=== PATIENT | male | born 1965 | race Caucasian/White ===

== ENCOUNTER 2020-11-28 10:22 | Emergency (ER) | payer OTHER, SELFPAY ==
--- NOTE | ~2020-11-28 | XR_ITS ---
EXAMINATION: XR chest 1V portable DATE: 11/28/2020 11:49 INDICATION: Shortness of breath and fever. TECHNIQUE: A single frontal view of the chest was obtained. COMPARISON: CT abdomen and pelvis 10/17/2011 FINDINGS: There are airspace opacities in the mid and lower lung zones with a peripheral predominance . No pleural effusion or pneumothorax. The heart size is normal. IMPRESSION: 1. Airspace opacities in the mid and lower lung zones, consistent with pneumonia. Reviewed, dictated and finalized at location B. WORKER IMPRESSION: 1. Airspace opacities in the mid and lower lung zones, consistent with pneumoni a.
--- NOTE | 2020-11-28 10:26 | ECG_ITS ---
Measurements Intervals [place] Rate: 71 P: 34 AL: 126 QRS: 55 QRSD: 93 T: 42 QT: 372 QTc: 406 Interpretive Statements SINUS RHYTHM NORMAL ECG Electronically Signed On 11-28-2020 10:40:14 SHOCK ABSORBER INSTALLER by Zac Lynne D.O.
[2020-11-28 10:28] VITALS: BP 123/100; PULSE 73; RESP 14; TEMP 36.3; O2SAT 99
[2020-11-28 10:56] LABS: Basophils Percent Auto 0.2 % (0.2-1.2); Eosinophils Percent Auto 0.3 % (0-4.4); Hematocrit 41.1 % (42.0-52.0); Hemoglobin 13.5 g/dL (14.0-18.0); Immature Granulocyte Absolute 0.02 K/mm3 (0.00-0.031); Immature Granulocyte Percent A 0.3 % (0-0.5); Lymphocytes Absolute Auto 0.94 K/mm3 (0.9-3.2); Lymphocytes Percent Auto 16.4 % (18.3-44.2); Mean Corpuscular HGB Conc 32.8 g/dl (32-36); Mean Corpuscular Hemoglobin 28.2 pg (26-34); Mean Corpuscular Volume 85.8 fl (80-100); Mean Platelet Volume 9.9 fl (7.4-10.4); Monocytes Absolute Auto 0.4 K/mm3 (0.1-0.6); Monocytes Percent Auto 7.1 % (2.6-8.5); Neutrophils Absolute Auto 4.3 K/mm3 (1.3-6.7); Neutrophils Percent Auto 75.7 % (45.5-73.1); Platelet Count Result 204 k/mm3 (150-375); Red Blood Count 4.79 M/mm3 (4.6-6.20); Red Cell Distribution Width 12.8 % (11.5-14.5); White Blood Count 5.7 K/mm3 (4.5-10.0)
[2020-11-28 11:03] LABS: Prothrombin Time 13.5 Seconds (11.1-14.7)
[2020-11-28 11:04] LABS: Partial Thromboplastin Time 36.1 SECONDS (22.3-36.8)
[2020-11-28 11:05] LABS: Anion Gap 9 mmol/L (8-16); Blood Urea Nitrogen 13 mg/dL (9-20); Calcium 9.1 mg/dL (8.4-10.2); Carbon Dioxide 27 mmol/L (22-30); Chloride 102 mmol/L (98-107); Estimated CRCL calculation 76 ml/min; Estimated Glomerular Filt Rate > 60; Glucose 125 mg/dL (75-110); Potassium 3.9 mmol/L (3.4-5.0); Sodium 138 mmol/L (137-145)
[2020-11-28 11:07] LABS: Alanine Aminotransferase 48 U/L (4-50); Albumin Level 4.1 g/dL (3.5-5.1); Alkaline Phosphatase 82 U/L (38-126); Aspartate Amino Transferase 43 U/L (17-59); Bilirubin,Total 0.8 mg/dL (0.2-1.3); Lipase 35 U/L (23-300)
[2020-11-28 11:19] LABS: Troponin I < 0.012 ng/mL (0.000-0.034)
[2020-11-28 11:25] LABS: CRP 20.4 mg/dL (<1.0)
[2020-11-28] MEDS: SODIUM CHLORIDE 0.9% IV 1,000 ML 999 ML IV CONT (11:34)
[2020-11-28 11:53] LABS: Lactic Acid Reflex 0.8 mmol/L (0.7-2.1)
--- NOTE | 2020-11-28 12:34 | ED.GENADULT ---
HPI - General Adult General Chief complaint: Shortness of Breath/Dyspnea Stated complaint: COVID +, SOB, FEVER Time Seen by Provider: 11/28/20 10:27 Source: patient Mode of arrival: ambulatory Limitations: no limitations History of Present Illness HPI narrative: Patient is a 55-year-old male who presents with shortness of breath fatigue fevers headache and body aches since the 4 when he developed his Covid symptoms patient tested positive and has been at home taking Tylenol and ibuprofen only patient denies any lung disease heart disease. Patient on arrival notes this morning felt short of breath and fatigue but is feeling much better at this time upon arrival to emergency department. Patient denies vomiting or diarrhea and on arrival appears in no distress Related Data Allergies Allergy/AdvReac Type Severity Reaction Status Date / Time codeine Allergy Unknown Unknown Verified 11/28/20 10:36 [email or web address] Allergy Verified 10/17/11 12:41 Review of Systems Review of Systems: All systems reviewed & are unremarkable except as noted in HPI and below PMFSH Past Medical History Medical History (Updated 11/28/20 @ 12:44 by Cole [place] PA-C) Hypertension Social History Social History (Updated 11/28/20 @ 12:36 by Cole [place] PA-C) Smoking status: Former smoker Exam Narrative: Exam Narrative: GENERAL: Well-appearing, well-nourished, and in no acute distress. HEAD: Normocephalic, atraumatic. EYES: PERRLA and EOMI. ENT: Nares clear, no rhinorrhea or epistaxis. Mucous membranes moist. CHEST: Clear to auscultation. No respiratory distress. No wheezes rales or rhonchi HEART: Regular rate and rhythm. No murmur heard. EXTREMITIES: Normal range of motion. No edema. SKIN: Warm, dry, no rash. NEURO: No focal deficits. Alert and oriented x3. Cranial nerves II through XII grossly intact PSYCH: Normal mood and affect. Course Course Emergency Course: Patient presented to emergency department with symptoms related to COVID-19 no hypoxemia normal vital signs no high risk changes in the blood work or imaging at this time no distress felt appropriate for outpatient reevaluation. Patient provided with reasons to return will be treated symptomatically. Patient advised to purchase a home oximeter to follow his oxygenation Vital Signs Vital signs: Vital Signs Temperature 97.3 F L 11/28/20 10:28 Pulse Rate 73 11/28/20 10:28 Respiratory Rate 14 11/28/20 10:28 Blood Pressure 123/100 H 11/28/20 10:28 Pulse Oximetry 99 11/28/20 10:28 Temperature 97.3 F L 11/28/20 10:28 Pulse Rate 73 11/28/20 10:28 Respiratory Rate 14 11/28/20 10:28 Blood Pressure 123/100 H 11/28/20 10:28 Pulse Oximetry 99 11/28/20 10:28 Medical Decision Making MDM Narrative Medical decision making narrative: Patient with Covid symptoms felt appropriate for outpatient reevaluation will be discharged with medications to treat his symptoms given reasons to return felt appropriate for outpatient reevaluation. Vital Signs Vital Signs: Vital Signs Temperature 97.3 F L 11/28/20 10:28 Pulse Rate 73 11/28/20 10:28 Respiratory Rate 14 11/28/20 10:28 Blood Pressure 123/100 H 11/28/20 10:28 Pulse Oximetry 99 11/28/20 10:28 Temperature 97.3 F L 11/28/20 10:28 Pulse Rate 73 11/28/20 10:28 Respiratory Rate 14 11/28/20 10:28 Blood Pressure 123/100 H 11/28/20 10:28 Pulse Oximetry 99 11/28/20 10:28 Lab Data Result diagrams: 11/28/20 10:43 11/28/20 10:43 Labs: Lab Results 11/28/20 11/28/20 11/28/20 Range/Units 10:43 10:43 10:43 WBC 5.7 (4.5-10.0) K/mm3 RBC 4.79 (4.6-6.20) M/mm3 Hgb 13.5 L (14.0-18.0) g/dL Hct 41.1 L (42.0-52.0) % MCV 85.8 (80-100) fl MCH 28.2 (26-34) pg MCHC 32.8 (32-36) g/dl RDW 12.8 (11.5-14.5) % Plt Count 204 (150-375) k/mm3 MPV 9.9 (7.4-10.4) fl Immature Gran % (Auto) 0.3 (0-0.5) % Mer[place]
[2020-11-28] MEDS: DEXAMETHASONE SOD PHOS INJ 4 MG/ML VIAL 6 MG IV PUSH (12:46)
[2020-11-28 12:49] VITALS: BP 137/91; PULSE 61; RESP 18; TEMP 36.9; O2SAT 100
== END 2020-11-28 13:00 | disposition home or self-care (01) ==
PROVIDERS: Emergency Medicine Emergency Medical Services; Emergency Provider Emergency Medicine; PCP Internal Medicine Gastroenterology
DX: U07.1 COVID-19 (principal); J12.82 Pneumonia due to coronavirus disease 2019; I10 Essential (primary) hypertension; Z87.891 Personal history of nicotine dependence
CPT/HCPCS: 36415; 71045; 80048; 80076; 83605; 83690; 84484; 85025; 85610; 85730; 86140; 87040; 93005; 96361; 96374; 99284; J1100; J7030

== ENCOUNTER 2025-04-17 10:43 | Emergency (ER) | payer OTHER, SELFPAY ==
--- NOTE | ~2025-04-17 | CT_ITS ---
EXAMINATION: CT abdomen pelvis w con DATE: 04/17/2025 11:36 INDICATION: Lower abdominal pain with bleeding TECHNIQUE: Computed tomography (CT) of the abdomen and pelvis was performed with 100 mL Omnipaque-350 intravenous contrast. Automated exposure control and iterative reconstruction technique were employe d. The dose-length product was 716.29 mGy-cm. COMPARISON: None FINDINGS: Lung bases are clear. Heart size normal. No pericardial or pleural effusion. Liver, gallbladder, sple en, pancreas, bilateral adrenal glands and kidneys are normal. Bowels including the appendix are norm al. Small fat-containing umbilical hernia. Bladder is normal. Small left and moderate-sized right fat -containing bilateral inguinal hernias. No free intraperitoneal gas or fluid. No pathologically enlar ged abdominal or pelvic lymphadenopathy. Severe disc height loss with degenerative endplate changes a t L4-L5. Otherwise mild scattered degenerative skeletal changes in the spine and pelvis. IMPRESSION: 1. No acute intra-abdominal/pelvic process. Reviewed, dictated and finalized at location A.
--- OUTSIDE RECORDS SUMMARY | 2025-04-17 10:45 | XMS_ITS | Continuity of Care Document ---
Author Organization [facility] Address [address] [place] [address] [address] [facility] [address] [place] [address] Phone Care Team Providers Care Manufacturing Area Manager Name Role Phone Miguelangel Eugene Unavailable Unavailable Procedures Procedure Date Eye Exam, New Patient Advance Directives Directive Yes / No Effective Date File Name No Information Encounters Encounter Description Practice Location Reason(s) For Visit Diagnoses Date Provider Providers Copied on Encounter [facility], [address] [place] [address] [address], [place], [place], [id number], [place] tel:[phone] SEC [facility] No Information [address] [facility] [address], [place], [address], [place]. tel:[phone] Family History Family Member Type Diagnosis Age At Onset No Information Payers Payer name Insurance type Covered green party ID Authoriza tipeter(s) [facility] CI [id number] Social History Type Description Quantity Date Captured [...]
--- OUTSIDE RECORDS SUMMARY | 2025-04-17 10:45 | XMS_ITS | CONTINUITY OF CARE DOCUMENT ---
Author Name tomas marin Address Unknown Organization [facility] Address [address] [place] [address] [address] [place] [address] Phone [phone] Care Team Providers Care Plate Roller Name Role Phone tomas marin Unavailable Unavailable
[2025-04-17 10:48] VITALS: BP 138/70; PULSE 67; RESP 18; TEMP 36.6; O2SAT 100
[2025-04-17 11:05] LABS: Basophils Percent Auto 0.6 % (0.2-1.2); Eosinophils Absolute Auto 0.1 K/mm3 (0-0.3); Eosinophils Percent Auto 1.3 % (0-4.4); Hematocrit 47.2 % (42.0-52.0); Hemoglobin 15.5 g/dL (14.0-18.0); Immature Granulocyte Absolute 0.01 K/mm3 (0.00-0.031); Immature Granulocyte Percent A 0.1 % (0-0.5); Lymphocytes Absolute Auto 1.15 K/mm3 (0.9-3.2); Lymphocytes Percent Auto 16.2 % (18.3-44.2); Mean Corpuscular HGB Conc 32.8 g/dl (32-36); Mean Corpuscular Hemoglobin 28.8 pg (26-34); Mean Corpuscular Volume 87.6 fl (80-100); Mean Platelet Volume 11.3 fl (7.4-10.4); Monocytes Absolute Auto 0.5 K/mm3 (0.1-0.6); Monocytes Percent Auto 7.1 % (2.6-8.5); Neutrophils Absolute Auto 5.3 K/mm3 (1.3-6.7); Neutrophils Percent Auto 74.7 % (45.5-73.1); Platelet Count Result 179 k/mm3 (150-375); Red Blood Count 5.39 M/mm3 (4.6-6.20); Red Cell Distribution Width 13.2 % (11.5-14.5); White Blood Count 7.1 K/mm3 (4.5-10.0)
--- OUTSIDE RECORDS SUMMARY | 2025-04-17 11:05 | XMS_ITS | Continuity of Care Document ---
Author Organization [facility] Address [address] [place] [address] [address] [facility] [address] [place] [address] Phone Care Team Providers Care Therapeutic Sales Specialist Name Role Phone Miguelangel Eugene Unavailable Unavailable Procedures Procedure Date Eye Exam, New Patient Advance Directives Directive Yes / No Effective Date File Name No Information Encounters Encounter Description Practice Location Reason(s) For Visit Diagnoses Date Provider Providers Copied on Encounter [facility], [address] [place] [address] [address], [place], [place], [id number], [place] tel:[phone] [facility] No Information [address] [facility] [address], [place], [address], [place]. tel:[phone] Family History Family Member Type Diagnosis Age At Onset No Information Payers Payer name Insurance type Covered republican ID Authoriza tipeter(s) [facility] CI [id number] Social History Type Description Quantity Date Captured [...]
--- OUTSIDE RECORDS SUMMARY | 2025-04-17 11:05 | XMS_ITS | CONTINUITY OF CARE DOCUMENT ---
Author Name tomas marin Address Unknown Organization [facility] Address [address] [place] [address] [address] [place] [address] Phone [phone] Care Team Providers Care Long Lines Operator Name Role Phone tomas marin Unavailable Unavailable
[2025-04-17 11:14] LABS: Alanine Aminotransferase 46 U/L (6-50); Albumin Level 4.8 g/dL (3.5-5.1); Alkaline Phosphatase 63 U/L (38-126); Anion Gap 11 mmol/L (4-12); Aspartate Amino Transferase 36 U/L (17-59); Bilirubin,Total 1.6 mg/dL (0.2-1.3); Blood Urea Nitrogen 21 mg/dL (9-20); Calcium 9.8 mg/dL (8.4-10.2); Carbon Dioxide 26 mmol/L (22-30); Chloride 102 mmol/L (98-107); Estimated CRCL calculation 64 ml/min; Estimated Glomerular Filt Rate 60; Glucose 144 mg/dL (65-110); Potassium 4.2 mmol/L (3.4-5.0); Sodium 139 mmol/L (137-145); Total Protein 7.8 g/dL (6.3-8.2)
[2025-04-17 11:17] LABS: Prothrombin Time 13.8 Seconds (11.1-14.7)
[2025-04-17 11:18] LABS: Partial Thromboplastin Time 29.8 Seconds (22.3-36.8)
[2025-04-17 12:19] VITALS: BP 125/73; BP 132/74; PULSE 59; PULSE 60
[2025-04-17 12:20] VITALS: BP 120/74; PULSE 64
--- NOTE | 2025-04-17 12:57 | ED_ITS ---
HPI - GI Bleed General Chief complaint: GI Bleed Stated complaint: blood in stool Time Seen by Provider: 04/17/25 10:52 Related Data Allergies Allergy/AdvReac Type Severity Reaction Status Date / Time codeine Allergy Unknown Unknown Verified 03/22/25 15:49 [email or web address] Allergy Verified 03/22/25 15:49 [facility] Past Medical History Medical History (Updated 04/17/25 @ 12:58 by Hakan Prasad MD) Hypertension Social History Social History (System 03/22/25 @ 15:49 by Shamir Gill) Smoking status: Former smoker Course Vital Signs Vital signs: Vital Signs Temperature 98 F 04/17/25 10:48 Pulse Rate 67 04/17/25 10:48 Respiratory Rate 18 04/17/25 10:48 Blood Pressure 138/70 04/17/25 10:48 Pulse Oximetry 100 04/17/25 10:48 Oxygen Delivery Room Air 04/17/25 10:48 Temperature 98 F 04/17/25 10:48 Pulse Rate 64 04/17/25 12:20 Respiratory Rate 18 04/17/25 10:48 Blood Pressure 120/74 04/17/25 12:20 Pulse Oximetry 100 04/17/25 10:48 Oxygen Delivery Room Air 04/17/25 10:48 MDM - GI Bleed Lab Data 04/17/25 11:00 04/17/25 11:00 Labs: Lab Results 04/17/25 Range/Units 11:00 WBC 7.1 (4.5-10.0) K/mm3 RBC 5.39 (4.6-6.20) M/mm3 Hgb 15.5 (14.0-18.0) g/dL Hct 47.2 (42.0-52.0) % MCV 87.6 (80-100) fl MCH 28.8 (26-34) pg MCHC 32.8 (32-36) g/dl RDW 13.2 (11.5-14.5) % Plt Count 179 (150-375) k/mm3 MPV 11.3 H (7.4-10.4) fl Immature Gran % (Auto) 0.1 (0-0.5) % Neut % (Auto) 74.7 H (45.5-73.1) % Lymph % (Auto) 16.2 L (18.3-44.2) % [place] % (Auto) 7.1 (2.6-8.5) % Eos % (Auto) 1.3 (0-4.4) % Baso % (Auto) 0.6 (0.2-1.2) % Lymph # (Auto) 1.15 (0.9-3.2) K/mm3 [place] # (Auto) 0.5 (0.1-0.6) K/mm3 Eos # (Auto) 0.1 (0-0.3) K/mm3 Baso # (Auto) 0.0 (0.0-0.1) K/mm3 Abs Immat Gran (auto) 0.01 (0.00-0.031) K/mm3 Absolute Neuts (auto) 5.3 (1.3-6.7) K/mm3 Absolute Nucleated RBC 0.000 (0.0-0.012) K/mm3 Nucleated RBC % 0.0 (0.0-0.2) % PT 13.8 (11.1-14.7) Seconds INR 1.0 APTT 29.8 (22.3-36.8) Seconds Sodium 139 (137-145) mmol/L Potassium 4.2 (3.4-5.0) mmol/L Chloride 102 (98-107) mmol/L Carbon Dioxide 26 (22-30) mmol/L Anion Gap 11 (4-12) mmol/L BUN 21 H (9-20) mg/dL Creatinine 1.23 (0.7-1.3) mg/dL Estim Creat Clear Calc 64 ml/min Estimated GFR 60 (59 - ) Glucose 144 H (65-110) mg/dL Calcium 9.8 (8.4-10.2) mg/dL Total Bilirubin 1.6 H (0.2-1.3) mg/dL AST 36 (17-59) U/L ALT 46 (6-50) U/L Alkaline Phosphatase 63 (38-126) U/L Total Protein 7.8 (6.3-8.2) g/dL Albumin 4.8 (3.5-5.1) g/dL Blood Type A Positive Antibody Screen Negative Discharge Plan Discharge Clinical Impression: Rectal bleeding Patient Disposition: Home Condition: Stable Instructions: Rectal Bleeding (ED) Additional Instructions: Your hemoglobin is normal and your not on any blood thinners. No source of bleeding was identified. It is likely related to a diverticula in your colon or to an internal hemorrhoid. Regardless you should use a stool softener and follow-up with GI for a colonoscopy. Return ER if you have worsening bleeding, you become lightheaded, you lose consciousness, or have additional concerns. Patient Language: Kittitian Prescriptions: New docusate sodium [Colace] 100 mg capsule 100 mg PO DAILY Qty: 10 0RF No Action famotidine [Pepcid] 20 mg tablet 20 mg PO BID Qty: 14 0RF ibuprofen [IBU] 600 mg tablet 600 mg PO Q6H PRN (Reason: fever or pain) Qty: 7 0RF albuterol sulfate 90 mcg/actuation HFA aerosol inhaler 2 puff inhalation QID PRN (Reason: shortness of breath or wheezing) Qty: 6.7 0RF fluticasone propionate [Flonase Allergy Relief] 50 mcg/actuation spray,suspension 2 spray intranasal DAILY Qty: 1 0RF Rx Instructions: administer into each nostril loratadine [Claritin] 10 mg tablet 10 mg PO DAILY PRN (Reason: allergy symptoms) Qty: 10 0RF Follow-up/Referrals: Kathleen Bartlett DO [Physician] - 1 Week PHYSICIAN,RUBBER EXTRUSION MACHINE OPERATOR [Primary Care Provider] - Ezekiel Winslow MD [Physician] - 1 Week
[2025-04-17 13:11] VITALS: BP 120/74; PULSE 68; RESP 15; O2SAT 99
== END 2025-04-17 13:13 | disposition home or self-care (01) ==
PROVIDERS: Emergency Provider Emergency Medicine
DX: K62.5 Hemorrhage of anus and rectum (principal); I10 Essential (primary) hypertension; Z87.891 Personal history of nicotine dependence
CPT/HCPCS: 36415; 74177; 80053; 85025; 85610; 85730; 86850; 86900; 86901; 99284; Q9967

== ENCOUNTER 2025-08-11 09:51 | Outpatient (CLI) | payer OTHER, SELFPAY ==
--- OUTSIDE RECORDS SUMMARY | 2008-02-24 03:27 | XMS_ITS | Continuity of Care Document ---
Author Organization [facility] Address [address] [place] [address] [facility] [address] [place] [address] Phone Care Team Providers Care Hot Blast Worker Name Role Phone Miguelangel Eugene Unavailable Unavailable Procedures Procedure Date Eye Exam, New Patient Advance Directives Directive Yes / No Effective Date File Name No Information Encounters Encounter Description Practice Location Reason(s) For Visit Diagnoses Date Provider Providers Copied on Encounter Located within [facility], [id number] [place] [address] [address], [place], [place], [id number], [place] tel:[phone] SEC [facility] No Information [address] [facility] [address], [place], [address], [place]. tel:[phone] Family History Family Member Type Diagnosis Age At Onset No Information Payers Payer name Insurance type Covered green party ID Authoriza tipeter(s) [facility] CI [id number] Social History Type Description Quantity Date Captured Comments Sex Male Smoking Status No Information Chief Complaint And Reason For Visit No Information Reason For Referral Reason For Referral No Information History Of Present Illness Encounter Date Complaint History Of Prese nt Illness No Information Functional Status Date Functional Assessmen t No Information Instructions Date Instruction Additional Infor mation No Information Assessments Type Assessment Date No Information Patient Care Teams Name Effective Dates (start - stop) Status Members No Information
--- NOTE | 2025-08-11 10:12 | ECG_ITS ---
Test Date: 2025-08-11 10:17:05 Measurements Intervals [place] Rate: 59 P: 44 MT: 134 QRS: 60 QRSD: 97 T: 40 QT: 393 QTc: 391 Interpretive Statements SINUS BRADYCARDIA BORDERLINE ECG No previous ECG available for comparison Electronically Signed On 08-11-2025 11:00:48 CDT by Zac Lynne D.O.
[2025-08-11 10:14] LABS: Add Urine Microscopic? NO; Appearance Urine Clear (Clear); Glucose Urine UA Negative (Negative); Leukocyte Esterase Ur Negative LEU/UL (Negative); Nitrate Urine Negative (Negative); Specific Grav Ur 1.019 (1.001-1.035)
[2025-08-11 10:53] LABS: Hematocrit 50.3 % (42.0-52.0); Hemoglobin 16.1 g/dL (14.0-18.0); Immature Granulocyte Percent A 0.3 % (0-0.5); Lymphocytes Absolute Auto 1.91 K/mm3 (0.9-3.2); Mean Corpuscular HGB Conc 32.0 g/dl (32-36); Mean Corpuscular Hemoglobin 28.3 pg (26-34); Mean Corpuscular Volume 88.4 fl (80-100); Nucleated Red Blood Cells Absolute Auto 0.000 K/mm3 (0.0-0.012); Nucleated Red Blood Cells Perc 0.0 % (0.0-0.2); Platelet Count Result 195 k/mm3 (150-375); Red Blood Count 5.69 M/mm3 (4.6-6.20); White Blood Count 6.9 K/mm3 (4.5-10.0)
[2025-08-11 11:11] LABS: Hemoglobin A1C 5.7 % (<5.7)
[2025-08-11 11:20] LABS: Alanine Aminotransferase 29 U/L (6-50); Albumin Level 4.7 g/dL (3.5-5.1); Alkaline Phosphatase 58 U/L (38-126); Anion Gap 9 mmol/L (4-12); Aspartate Amino Transferase 33 U/L (17-59); Bilirubin,Total 1.1 mg/dL (0.2-1.3); Blood Urea Nitrogen 19 mg/dL (9-20); Calcium 9.0 mg/dL (8.4-10.2); Carbon Dioxide 28 mmol/L (22-30); Chloride 102 mmol/L (98-107); Cholesterol 243 mg/dL (0-200); Estimated Glomerular Filt Rate > 60; Glucose 95 mg/dL (65-110); HDL Direct 51 mg/dL; Potassium 4.1 mmol/L (3.4-5.0); Sodium 139 mmol/L (137-145); Total Protein 7.9 g/dL (6.3-8.2); Triglycerides 275 mg/dL (<150)
[2025-08-11 11:49] LABS: Thyroid Stimulating Hormone Reflex 2.440 uIU/mL (0.465-4.68)
[2025-08-11 12:01] LABS: Prostate Specific Antigen 0.8 ng/mL (< OR = 4.0)
== END 2025-08-11 09:52 | disposition home or self-care (01) ==
LOC: ANHLAB 09:52
PROVIDERS: PCP Nurse Practitioner Family; Visit Provider Nurse Practitioner Family
DX: R07.9 Chest pain, unspecified (principal); I10 Essential (primary) hypertension; E78.5 Hyperlipidemia, unspecified; Z12.5 Encounter for screening for malignant neoplasm of prostate; R73.09 Other abnormal glucose; R94.31 Abnormal electrocardiogram [ECG] [EKG]
CPT/HCPCS: 36415; 80053; 80061; 81003; 83036; 84153; 84443; 85025; 93005; G0103